=== PATIENT | female | born 1985 | race Hispanic/Latino ===

== ENCOUNTER 2022-05-09 08:47 | Emergency (ER) | payer SELFPAY ==
[2022-05-09] MEDS ORDERED: Lactated Ringer's 1,000 ML ONE (09:26)
[2022-05-09] MEDS ORDERED: Acetaminophen 500 MG TAB ONE (09:26)
[2022-05-09 09:32] LABS: Bilirubin Negative (Negative); Blood, Urine Large (Negative); Clarity Slightly Cloudy (Clear); Glucose, Urine (Dipstick) Negative (Negative); Ketone, Urine 15 mg/dL (Negative); Leukocyte Small (Negative); Nitrite Positive (Negative); Protein, Urine (Dipstick) 100 mg/dL (Neg-Trace); Urobilinogen 0.2 mg/dL (Less than 2)
[2022-05-09 09:39] LABS: Pregnancy Test - Urine (BHCG) Negative (Negative)
[2022-05-09 09:40] LABS: Pregu Control Background? CLEAR/WHITE (CLR/WHITE); Pregu Control Bar Appear? YES (CONTROL BAR)
[2022-05-09 09:41] LABS: WBC/HPF Greater than 50 HPF (0-3)
[2022-05-09 09:45] LABS: Bacteria/HPF 3+ HPF (None Seen)
[2022-05-09 10:03] LABS: Hemoglobin 12.6 g/dL (12.0-16.0); Mean Corpuscular HGB CONC 32.4 g/dL (32.0-36.0); Mean Corpuscular Volume 83.2 fL (78.0-98.0); Mean Platelet Volume 7.4 fL (7.4-10.4); Platelet Count 378 thou/uL (130-400); RBC Distribution Width 11.7 % (11.5-14.5); Red Blood Cell (RBC) Count 4.68 mill/uL (4.20-5.40); White Blood Cell (WBC) Count 20.6 thou/uL (4.8-10.8)
[2022-05-09] MEDS ORDERED: Sodium Chloride 0.9% 100 ML ONE (10:06)
[2022-05-09] MEDS ORDERED: cefTRIAXone\\ROCEPHIN 2 GM VIAL ONE (10:06)
[2022-05-09 10:08] LABS: ALT (SGPT) 28 U/L (8-55); AST (SGOT) 25 U/L (5-34); Albumin 4.2 g/dL (3.5-5.0); Alkaline Phosphatase 102 U/L (40-110); Anion Gap 19 mmol/L (10-20); BUN (Urea Nitrogen) 8 mg/dL (7.0-18.7); Bilirubin, Total 0.5 mg/dL (0.2-1.2); Calc. Creatinine Clearance 0 mL/min (70-130); Calcium 9.2 mg/dL (7.8-10.44); Carbon Dioxide 17 mmol/L (22-29); Chloride 104 mmol/L (98-107); Globulin 3.5 g/dL (2.4-3.5); Glucose 128 mg/dL (70-105); Potassium 3.9 mmol/L (3.5-5.1); Protein, Total 7.7 g/dL (6.0-8.3); Sodium 136 mmol/L (136-145)
[2022-05-09 10:12] LABS: Manual Diff?? YES
[2022-05-09 10:15] LABS: Anisocytosis SLIGHT = 6-15 cells (100X) (0-5/hpf); Band 10 % (5-11); Lymphocytes 8 % (21-51); MDiff Complete? YES; Monocytes 6 % (0-10); Neutrophil 76 % (42-75); Platelet Morphology Comment Appears Adequate
== END 2022-05-09 11:00 | disposition home or self-care (01) ==
LOC: MADERS 08:47
DX: N10 Acute pyelonephritis (principal); E87.2 Acidosis
CPT/HCPCS: 80053; 81003; 81015; 81025; 83605; 85025; 87040; 87077; 87086; 87186; 94760; 96365; J0696; J3490; J7120